=== PATIENT | female | born 1975 | race African-American/Black ===

== ENCOUNTER 2018-07-17 09:05 | Emergency (ER) | payer BC ==
[~2018-07-17] VITALS: Ht 157.5 cm; Wt 155.0 kg
[~2018-07-17 09:05] MED LIST: AMOXICILLIN500 MG PO; BACTRIM DS1 TAB PO; BENZONATATE200 MG PO; CEPHALEXIN500 MG PO; DOXYCYC MONO100 M1 PO; GLIPIZIDE10 MG PO; INVOKANA300 MG PO; JANUVIA100 MG PO; LIPITOR10 M1 PO; METFORMIN1000 MG PO; METFORMIN500 M2 PO; METFORMIN500 MG PO; ORTHO TRI-CYCLEN LO OR; PERCOCET1 TA2 PO; PRILOSEC20 MG/CAP PO; ULTRAM50 MG OR; ZPAK PO
[2018-07-17] MEDS ORDERED: PROAIR HFA108 MCG/AC PO (09:26)
[2018-07-17] MEDS ORDERED: ZPAK PO (09:26)
[2018-07-17] MEDS ORDERED: AUGMENTIN875TAB PO (09:26)
[2018-07-17 09:48] VITALS: BP 134/96
== END 2018-07-17 09:58 | disposition home or self-care (01) | DRG 195 ==
LOC: ED 09:05
DX: J18.9 Pneumonia, unspecified organism (principal); E11.9 Type 2 diabetes mellitus without complications; L40.9 Psoriasis, unspecified